=== PATIENT | female | born 1950 ===

== ENCOUNTER 2022-04-17 19:59 | Emergency (ER) | payer SELFPAY ==
--- NOTE | 2022-04-17 21:45 | RAD REPORT ---
EXAM DESCRIPTION: CT - Head C Spine Mpr Wo Con - 04/17/2022 9:21 pm CLINICAL HISTORY: Head and neck injury status post fall. Head and neck pain COMPARISON: None. TECHNIQUE: Computed axial tomography of the head and cervical spine was obtained. Sagittal and coronal reconstruction was performed. All CT scans are performed using dose optimization technique as appropriate and may include automated exposure control or mA/KV adjustment according to patient size. FINDINGS: An intracranial bleed is not seen. Mild to moderate low-density within periventricular, de ep subcortical white matter probably ischemic changes secondary small vessel disease. Low density areas within thalami bilaterally The ventricles are normal in caliber. An extra-axial flu id collection is not noted.Fluid within the visualized sinuses and mastoids is not seen A cervical fracture is not visualized. No dislocation is noted. IMPRESSION: Low density areas within thalami bilaterally may represent lacunar infarcts of indetermi leif age. A cervical fracture is not visualized. If the patient continues to have symptoms to suggest acute intracranial /spinal cord pathology then M RI would be recommended
--- NOTE | 2022-04-17 21:47 | RAD REPORT ---
EXAM DESCRIPTION: RAD - Humerus Left - 04/17/2022 9:05 pm CLINICAL HISTORY: Left arm pain status post fall FINDINGS: Comminuted neck fracture with marked displacement and marked angulation. There appears to be an anterior humeral dislocation.
--- NOTE | 2022-04-17 21:47 | RAD REPORT ---
EXAM DESCRIPTION: RAD - Shoulder Left 2 View - 04/17/2022 9:05 pm CLINICAL HISTORY: Left shoulder pain status post fall FINDINGS: Comminuted humeral neck fracture with marked displacement and marked angulation. There appears to be an anterior humeral dislocation.
--- NOTE | 2022-04-17 21:48 | RAD REPORT ---
EXAM DESCRIPTION: Corey Single View04/17/2022 9:05 pm CLINICAL HISTORY: Chest pain COMPARISON: none FINDINGS: The lungs appear clear of acute infiltrate. The heart is normal size Comminuted left humeral neck fracture with marked displacement and marked angulation. There appears to be an anterior humeral dislocation.
[2022-04-17 21:51] LABS: Protime INR 1.24
[2022-04-17 21:52] LABS: Absolute Lymphocytes (CBC) 0.8 K/uL (0.7-4.9); Hematocrit 31.4 % (36.0-45.0); Lymphocytes % 4.7 % (15.3-44.8); MCV 90.6 fL (80-100); MPV 9.4 fL (7.6-11.3); RBC Red Blood Cell Count 3.46 M/uL (3.86-4.86)
[2022-04-17] MEDS ORDERED: MECLIZINE HCL 12.5 MG TAB ONE (21:54)
[2022-04-17] MEDS ORDERED: MORPHINE 2 MG/ML SYR ONE (21:54)
[2022-04-17 22:03] LABS: Albumin 3.2 g/dL (3.4-5.0); Bilirubin Direct 0.2 mg/dL (0-0.2); Bilirubin Total 0.6 mg/dL (0.2-1.0); Magnesium 1.5 mg/dL (1.8-2.4); Potassium 4.1 mmol/L (3.5-5.1); Protein, Total 7.7 g/dL (6.4-8.2); Troponin High Sensitivity 4.4 pg/mL (<58.9)
[2022-04-17] MEDS ORDERED: ONDANSETRON 4 MG/2 ML VIAL ONE (22:03)
[2022-04-17 22:07] LABS: SARS-CoV-2 Antigen Rapid Res Negative (Negative)
[2022-04-17 22:55] LABS: Blood O2 Saturation 97.9 % (92-98.5)
[2022-04-17 22:56] LABS: Arterial Blood Carboxyhemoglob 1.3 % (0-1.5); Blood Gas Oxyhemoglobin 95.6 % (94-97)
[2022-04-17 23:05] LABS: Urine Blood Negative (Negative); Urine Glucose Negative (Negative); Urine Protein Negative (Negative); Urine Specific Gravity 1.015 (1.005-1.030)
--- NOTE | 2022-04-18 00:23 | EDPHYS ---
Physician Documentation [facility] Name: Fabiola Hays Age: 71 yrs Sex: Female : 1950 Arrival Date: 04/17/2022 Time: 20:00 Bed 12 Private MD: ED Physician Bony Lopez HPI: 04/17 20:42 This 71 yrs old Female presents to ER via EMS with complaints of Fall Injury. mh7 20:42 Details of fall: The patient fell from an upright position, while standing. Onset: The mh7 symptoms/episode began/occurred just prior to arrival, today. Associated injuries: The patient sustained left shoulder, painful injury. Severity of symptoms: At their worst the symptoms were moderate, earlier today, in the emergency department the symptoms have improved, moderately. Patient reports dizziness with spinning sensation and nausea then falling onto tile floor. She has a history of vertigo for years but started having symptoms again about a month ago. She has not taken vertigo medication in at least a year. Denies any head trauma or LOC. Denies fever, chest pain, abdominal pain, SOB, numbness/tingling, or weakness before or after falling.. Historical: - Allergies: 20:11 No Known Allergies; lp1 - Home Meds: 21:23 Novolog Mix 70-30 U-100 Insulin subcutaneous [Active]; Norvasc Oral [Active]; lp1 - PMHx: 20:11 Vertigo; lp1 21:23 Hypertensive disorder; Diabetes mellitus; lp1 - Immunization history:: Adult Immunizations up to date. - Social history:: Smoking status: Patient denies any tobacco usage or history of. ROS: 20:42 Constitutional: Negative for fever, chills, and weight loss, Eyes: Negative for injury, mh7 pain, redness, and discharge, ENT: Negative for injury, pain, and discharge, Neck: Negative for injury, pain, and swelling, Cardiovascular: Negative for chest pain, palpitations, and edema, Respiratory: Negative for shortness of breath, cough, wheezing, and pleuritic chest pain. 20:42 Back: Negative for injury and pain, : Negative for injury, bleeding, discharge, and swelling, Skin: Negative for injury, rash, and discoloration, Psych: Negative for depression, anxiety, suicide ideation, homicidal ideation, and hallucinations, Allergy/Immunology: Negative for hives, rash, and allergies, Endocrine: Negative for neck swelling, polydipsia, polyuria, polyphagia, and marked weight changes, Hematologic/Lymphatic: Negative for swollen nodes, abnormal bleeding, and unusual bruising. 20:42 Abdomen/GI: Negative for abdominal pain, vomiting, diarrhea, constipation, abdominal cramps, abdominal distension, anorexia, dysphagia, hematemesis, black/tarry stool, rectal pain, rectal bleeding, bowel incontinence, flatulence. Exam: 20:42 Head/Face: Normocephalic, atraumatic. Eyes: Pupils equal round and reactive to light, mh7 extra-ocular motions intact. Lids and lashes normal. Conjunctiva and sclera are non-icteric and not injected. Cornea within normal limits. Periorbital areas with no swelling, redness, or edema. ENT: Nares patent. No nasal discharge, no septal abnormalities noted. Tympanic membranes are normal and external auditory canals are clear. Oropharynx with no redness, swelling, or masses, exudates, or evidence of obstruction, uvula midline. Mucous membranes moist. Neck: Trachea midline, no thyromegaly or masses palpated, and no cervical lymphadenopathy. Supple, full range of motion without nuchal rigidity, or vertebral point tenderness. No Meningismus. Chest/axilla: Normal chest wall appearance and motion. Nontender with no deformity. No lesions are appreciated. Cardiovascular: Regular rate and rhythm with a normal S1 and S2. No gallops, murmurs, or rubs. Normal PMI, no JVD. No pulse deficits. Respiratory: Lungs have equal breath sounds bilaterally, clear to auscultation and percussion. No rales, rhonchi or wheezes noted. No increased work of breathing, no retractions or nasal flaring. Abdomen/GI: Soft, non-tender, with normal bowel sounds. No distension or tympany. No guarding or rebound. No evidence of tenderness throughout. Back: No spinal tenderness. No costovertebral tenderness. Full range of motion. Skin: Warm, dry with normal turgor. Normal color with no rashes, no lesions, and no evidence of cellulitis. Psych: Awake, alert, with orientation to person, place and time. Behavior, mood, and affect are within normal limits. 20:42 Constitutional: The patient appears in no acute distress, alert, awake, uncomfortable. 20:42 Neuro: Orientation: is normal, Mentation: is normal, Memory: is normal, Cranial nerves: grossly normal, Cerebellar function: is grossly normal, Motor: is normal, Sensation: is normal, Gait: not tested. seizure activity, is not displayed by the patient, Abnormal movements: there are no abnormal movements. 20:42 Musculoskeletal/extremity: Extremities: noted in the left shoulder: decreased ROM, mh7 pain, tenderness, ROM: limited active range of motion, in the left shoulder, limited passive range of motion, in the left shoulder, Circulation is intact in all extremities. Sensation intact. Compartment Syndrome exam of affected extremity: is normal. no numbness, no tingling, no sensation deficit, no palor, no weak pulses, Joints: the left shoulder displays limited range of motion, painful range of motion, tenderness, Weight bearing: able to fully bear weight, without difficulty, Tendon exam: specific tendon testing normal through active and passive range of motion Vital Signs: 20:10 BP 133 / 51; Pulse 87; Resp 18; Temp 97.5(TE); Pulse Ox 100% on R/A; Weight 58.97 kg; lp1 Pain 8/10; 21:13 BP 145 / 47; Pulse 82; Resp 16; Pulse Ox 100% on R/A; lp1 22:30 BP 148 / 57; Pulse 85; Resp 19; Pulse Ox 99% on R/A; lp1 23:36 BP 162 / 60; Pulse 97; Resp 20; Pulse Ox 100% on R/A; lp1 08/16 00:57 BP 166 / 65; Pulse 100; Resp 19; Temp 98.7(O); Pulse Ox 97% on R/A; lp1 01:45 BP 161 / 74; Pulse 103; Resp 18; Pulse Ox 98% on R/A; lp1 02:45 BP 169 / 67; Pulse 108; Resp 17; Pulse Ox 99% on R/A; Pain 8/10; lp1 MDM: 00:10 Differential diagnosis: closed head injury, contusion, fracture, multiple trauma. Data [facility] reviewed: vital signs, nurses notes, EMS record, lab test result(s), cardiac enzymes, CBC, electrolytes, EKG, radiologic studies, CT scan, plain films. Data interpreted: Pulse oximetry: on room air is 100 %. Interpretation: normal. Counseling: I had a detailed discussion with the patient and/or guardian regarding: the historical points, exam findings, and any diagnostic results supporting the discharge/admit diagnosis, the presence of at least one elevated blood pressure reading (>120/80) during this emergency department visit, lab results, radiology results, the need to transfer to another facility, for higher level of care. Response to treatment: the patient's symptoms have mildly improved after treatment. Physician consultation: Caio Burroughs MD was contacted at 21:56, regarding patient's condition, after a discussion of the case, a recommendation for transfer for higher level of care is made, Per Dr. Burroughs patient will likely require shoulder joint replacement which he does not do.. ED course: Feels better, NAD, VSS, NVI, no focal neurological deficits. Discussed test results and findings with patient and her daughter and need for transfer. They request transfer to [facility] for further care.. 00:21 Patient medically screened. [facility] 04/17 20:28 Order name: Basic Metabolic Panel; Complete Time: 22:06 [facility] 04/17 20:28 Order name: CBC with Diff; Complete Time: 21:59 7 04/17 20:28 Order name: LFT's; Complete Time: 22:06 [facility] 04/17 20:28 Order name: Magnesium; Complete Time: 22:06 7 04/17 20:28 Order name: NT PRO-BNP; Complete Time: 22:06 7 04/17 20:28 Order name: PT-INR; Complete Time: 21:53 7 04/17 20:24 Order name: Shoulder Left (2 View) XRAY; Complete Time: 21:53 lp1 04/17 20:28 Order name: Troponin HS; Complete Time: 22:06 7 04/17 20:28 Order name: XRAY Chest (1 view); Complete Time: 21:53 7 04/17 20:28 Order name: CT Head C Spine; Complete Time: 21:47 7 04/17 20:29 Order name: SARS RAPID; Complete Time: 22:08 7 04/17 22:08 Order name: Arterial Blood Gas: Venous blood gas; Complete Time: 23:07 7 04/17 22:08 Order name: Ketone, Serum; Complete Time: 23:47 [facility] 04/17 23:05 Order name: Urine Dipstick-Ancillary; Complete Time: 23:07 EDMS 04/17 20:28 Order name: EKG; Complete Time: 20:31 [facility] 04/17 20:28 Order name: Cardiac monitoring; Complete Time: 21:19 [facility] 04/17 20:28 Order name: EKG - Nurse/Tech; Complete Time: 21:19 [facility] 04/17 20:28 Order name: IV Saline Lock; Complete Time: 21:19 [facility] 04/17 20:28 Order name: Labs collected and sent; Complete Time: 21:19 [facility] 04/17 20:28 Order name: O2 Per Protocol; Complete Time: 21:19 [facility] 04/17 20:28 Order name: O2 Sat Monitoring; Complete Time: 21:22 [facility] 04/17 20:28 Order name: Urine Dipstick-Ancillary (obtain specimen); Complete Time: 23:34 [facility] 04/17 20:38 Order name: Humerus Left XRAY; Complete Time: 21:53 [facility] 04/18 00:51 Order name: Sling; Complete Time: 03:16 7 Administered Medications: 04/17 21:58 Drug: morphine 2 mg {Note: Verbal order per Dr. Lopez.} Route: IVP; Infused Over: 4 lp1 mins; Site: right antecubital; 23:00 Follow up: Response: No adverse reaction lp1 21:59 Drug: Zofran (Ondansetron) 4 mg {Note: Verbal order per Dr. Lopez.} Route: IVP; Site: lp1 right antecubital; 23:00 Follow up: Response: Nausea is decreased lp1 22:53 Not Given (NS by EMS infusing to R AC): NS 0.9% 1000 ml IV at 1000 ml once lp1 04/18 03:00 Drug: fentaNYL (PF) 50 mcg {Note: Verbal order per Dr. Lopez.} Route: IVP; Site: right lp1 antecubital; 03:14 Follow up: Response: Other; RASS: Alert and Calm (0); Given prior to transfer lp1 Disposition Summary: 04/18/22 00:21 Transfer Ordered Transfer Location: [facility] Reason: Higher level of care mh7 Condition: Stable mh7 Problem: new mh7 Symptoms: have improved mh7 Accepting Physician: Dr. Irving(04/18/22 03:16) lp1 Diagnosis - Dizziness and giddiness mh7 - Hypo-osmolality and hyponatremia mh7 - Comminuted fracture proximal humerus, anterior dislocation, left mh7 - Fall on same level, unspecified mh7 Discharge Instructions: - Discharge Summary Sheet 1 Forms: - Family Work Release lp1 - Medication Reconciliation Form mh7 - SBAR form 7 Signatures: Dispatcher [employer] EDMaria Teresa Siddiqui RN RN 1 Bony Lopez MD MD 7 Corrections: (The following items were deleted from the chart) 03:16 00:21 Dr. Irving [facility]
--- NOTE | 2022-04-18 00:23 | ER ---
Nurse's Notes [facility] Name: Fabiola Hays Age: 71 yrs Sex: Female : 1950 Arrival Date: 04/17/2022 Time: 20:00 Bed 12 Private MD: Diagnosis: Dizziness and giddiness;Hypo-osmolality and hyponatremia;Comminuted fracture proximal humerus, anterior dislocation, left;Fall on same level, unspecified Presentation: 04/17 20:10 Chief complaint: EMS states: Called for patient who fell from standing position, lp1 reports pain to left shoulder, no LOC; Family reports hx of vertigo, patient has episodes of dizziness. Coronavirus screen: At this time, the client does not indicate any symptoms associated with coronavirus-19. Ebola Screen: No symptoms or risks identified at this time. Initial Sepsis Screen: Does the patient meet any 2 criteria? No. Patient's initial sepsis screen is negative. Does the patient have a suspected source of infection? No. Patient's initial sepsis screen is negative. Risk Assessment: Do you want to hurt yourself or someone else? Patient reports no desire to harm self or others. Onset of symptoms was April 17, 2022. 20:10 Method Of Arrival: EMS: [facility] lp1 20:10 Acuity: KATHE 3 lp1 20:12 Care prior to arrival: Medication(s) given: Normal saline infusion, 1000 mL, Fentanyl lp1 50mcg IV, Zofran 4mg IV IV initiated. 18 GA, in the right antecubital area, Glucose check: 348. Historical: - Allergies: 20:11 No Known Allergies; lp1 - Home Meds: 21:23 Novolog Mix 70-30 U-100 Insulin subcutaneous [Active]; Norvasc Oral [Active]; lp1 - PMHx: 20:11 Vertigo; lp1 21:23 Hypertensive disorder; Diabetes mellitus; lp1 - Immunization history:: Adult Immunizations up to date. - Social history:: Smoking status: Patient denies any tobacco usage or history of. Screenin:12 Abuse screen: Denies threats or abuse. Denies injuries from another. Nutritional lp1 screening: No deficits noted. Tuberculosis screening: No symptoms or risk factors identified. Fall Risk Total [place] Fall Scale indicates High Risk Score (45 or more points). Fall prevention measures have been instituted. Side Rails Up X 2 Frequent Obs/Assessments Occuring As available patient and family educated on Fall Prevention Program and Strategies. Assessment: 04/16 20:15 General: Appears in no apparent distress. Behavior is calm. Pain: Complains of pain in lp1 left shoulder Pain currently is 8 out of 10 on a pain scale. Neuro: Level of Consciousness is awake, obeys commands, Oriented to person, place, Pupils are PERRLA, Reports dizziness, hx of Vertigo. Cardiovascular: Patient's skin is warm and dry. Respiratory: Respiratory effort is even, unlabored, Breath sounds are clear bilaterally. GI: Abdomen is non-distended. : No signs and/or symptoms were reported regarding the genitourinary system. EENT: No signs and/or symptoms were reported regarding the EENT system. Derm: Skin is intact, Skin is dry, Skin is normal. Musculoskeletal: No deficits noted. 04/17 21:13 Reassessment: Daughter at bedside. lp1 22:30 Reassessment: Patient appears in no apparent distress at this time. Patient lying in lp1 bed, eyes closed, respirations even; Daughter at bedside. 04/18 01:02 Reassessment: Patient appears in no apparent distress at this time. patient lying in lp1 bed, daughter at bedside; aware of pending transfer. 01:09 Reassessment: Report called to WILLIAM Ribeiro for patient transfer to [facility] room 8 lp1 B [id number]. 02:45 Reassessment: [facility] at bedside for transfer. lp1 03:00 Reassessment: Patient's daughter reports patient complaint of pain returning to left lp1 shoulder; Provider notified. 03:00 Neuro: Level of Consciousness is awake, alert, obeys commands. Cardiovascular: lp1 Patient's skin is warm and dry. Pulses are all present. Respiratory: Respiratory effort is even, unlabored. Derm: Skin is intact, Skin is dry, Skin is normal, Skin temperature is warm. Vital Signs: 04/17 20:10 BP 133 / 51; Pulse 87; Resp 18; Temp 97.5(TE); Pulse Ox 100% on R/A; Weight 58.97 kg; lp1 Pain 8/10; 21:13 BP 145 / 47; Pulse 82; Resp 16; Pulse Ox 100% on R/A; lp1 22:30 BP 148 / 57; Pulse 85; Resp 19; Pulse Ox 99% on R/A; lp1 23:36 BP 162 / 60; Pulse 97; Resp 20; Pulse Ox 100% on R/A; lp1 16 00:57 BP 166 / 65; Pulse 100; Resp 19; Temp 98.7(O); Pulse Ox 97% on R/A; lp1 01:45 BP 161 / 74; Pulse 103; Resp 18; Pulse Ox 98% on R/A; lp1 02:45 BP 169 / 67; Pulse 108; Resp 17; Pulse Ox 99% on R/A; Pain 8/10; lp1 ED Course: 04/17 20:00 Patient arrived in ED. ag3 20:01 Bony Lopez MD is Attending Physician. mh7 20:10 Maria Teresa Patterson, WILLIAM is Primary Nurse. lp1 20:11 Triage completed. lp1 20:11 Arm band placed on right wrist. lp1 20:12 Patient has correct armband on for positive identification. Bed in low position. Side lp1 rails up X2. Pulse ox on. NIBP on. 21:07 Shoulder Left (2 View) XRAY In Process Unspecified. EDMS 21:07 XRAY Chest (1 view) In Process Unspecified. EDMS 21:07 Humerus Left XRAY In Process Unspecified. EDMS 21:12 Initial lab(s) drawn, by me, sent to lab. COVID swab sent to lab. Maintain EMS IV. lp1 Dressing intact. Good blood return noted. Site clean \T\ dry. Gauge \T\ site: 18g to R AC. 21:23 CT Head C Spine In Process Unspecified. EDMS 22:53 Straight cath inserted, using sterile technique, 16 Fr. Specimen obtained. lp1 23:29 initiated a transfer with Remberto from [facility]. 2 04/18 00:[address] Lopez with the Dr. Gamboa from [facility]. mw2 00:12 administrative approval given by Remberto Jasmine/ patient has been accepted to [address] 8 B 833/Dr. Irving accepted the patient in transfer/report to be called to [phone]. 01:02 No provider procedures requiring assistance completed. lp1 03:00 Sling applied to left arm. lp1 03:12 Patient transferred, IV remains in place. lp1 Administered Medications: 04/17 21:58 Drug: morphine 2 mg {Note: Verbal order per Dr. Lopez.} Route: IVP; Infused Over: 4 lp1 mins; Site: right antecubital; 23:00 Follow up: Response: No adverse reaction lp1 21:59 Drug: Zofran (Ondansetron) 4 mg {Note: Verbal order per Dr. Lopez.} Route: IVP; Site: lp1 right antecubital; 23:00 Follow up: Response: Nausea is decreased lp1 22:53 Not Given (NS by EMS infusing to R AC): NS 0.9% 1000 ml IV at 1000 ml once lp1 04/18 03:00 Drug: fentaNYL (PF) 50 mcg {Note: Verbal order per Dr. Lopez.} Route: IVP; Site: right lp1 antecubital; 03:14 Follow up: Response: Other; RASS: Alert and Calm (0); Given prior to transfer lp1 Medication: 04/17 20:12 VIS not applicable for this client. lp1 Intake: 04/18 00:00 IV: 1000ml (IV Fluid); Total: 1000ml. lp1 Outcome: 00:21 ER care complete, transfer ordered by . [facility] 01:02 Condition: stable lp1 01:02 Instructed on the need for transfer. 03:16 Transferred by ground EMS to [facility], Transfer form lp1 completed. X-rays sent w/ patient. 03:16 Patient left the ED. lp1 Signatures: Dispatcher [employer] EDMS Maria Teresa Patterson RN RN lp1 Adelita Flynn 2 Monse Butler 3 Bony Lopez MD MD 7 Corrections: (The following items were deleted from the chart) 04/17 23:29 20:12 Care prior to arrival: Medication(s) given: Fentanyl 50mcg IV, Zofran 4mg IV IV lp1 initiated. 18 GA, in the right antecubital area, Glucose check: 348 lp1 23:56 23:55 Reassessment: Patient appears in no apparent distress at this time. Patient lying lp1 in bed, eyes closed, respirations even; Daughter at bedside lp1 04/18 01:08 00:57 BP 166 / 65; Pulse 14bpm; Resp 19bpm; Pulse Ox 97% RA; Temp 98.7F Oral; lp1 lp1
[2022-04-18] MEDS ORDERED: FENTANYL CITR 100 MCG/2 ML ONE (03:07)
[2022-04-18 04:13] VITALS: TEMP 98.7
[2022-04-18 04:18] VITALS: BP 169/67; O2SAT 99
--- NOTE | 2022-04-18 08:12 | EKG ---
Test Date: 2022-04-17 Test Time: 21:07:15 Road Passenger Firer: MISTY MEASUREMENT RESULTS: Intervals: Rate: 80 TX: 160 QRSD: 76 QT: 400 QTc: 461 [place]: P: 44 TX: 160 QRS: 13 T: 3 INTERPRETIVE STATEMENTS: Normal sinus rhythm Normal ECG No previous ECG available for comparison Electronically Signed On 04-18-22 08:10:59 CDT by Viktor Alfaro
== END 2022-04-18 03:16 | disposition short-term general hospital (02) ==
LOC: ER 19:59
DX: E87.1 Hypo-osmolality and hyponatremia (principal); S42.202A Unspecified fracture of upper end of left humerus, initial encounter for closed fracture; W18.30XA Fall on same level, unspecified, initial encounter; E11.9 Type 2 diabetes mellitus without complications; Z79.4 Long term (current) use of insulin; I10 Essential (primary) hypertension
CPT/HCPCS: 36415; 70450; 71045; 72125; 80048; 80076; 81003; 82010; 82805; 83735; 83880; 84484; 85025; 85610; 87811; 93005; J2270; J2405; J3010; J8597